=== PATIENT | female | born 1970 | race Hispanic/Latino ===

== ENCOUNTER 2017-06-20 09:20 | Outpatient (CLI) | payer BC ==
--- NOTE | 2017-06-20 11:07 | Mammography Report ---
BILATERAL MAMMOGRAM: FINDINGS: The breast tissue is heterogeneously dense, which could obscure detection of small masses (approximately 50%-75% glandular). No mass, distortion, suspicious calcification, or skin change is seen. CAD was utilized. IMPRESSION: Negative mammogram. There is no mammographic evidence of malignancy. RECOMMENDATION: Follow-up per ACS guidelines. BI-RADS CATEGORY: 1 = Negative ACR BI-RADS MAMMOGRAPHIC CODES: 0 = Needs additional imaging evaluation; 1 = Negative; 2 = Benign; 3 = Probably benign; 4 = Suspicious; 5 = Malignant; 6 = Known biopsy-proven malignancy COMMENT: 1. Dense breast tissue, i.e., adenosis, fibrocystic changes, etc., may obscure an underlying neoplasm. 2. Approximately 10% of cancers are not detected with mammography. 3. A negative mammography report should not delay biopsy if a clinically suspicious mass is present. COMMENT: Patient follow-up letters are generated in [employer].
== END 2017-06-20 09:21 | disposition home or self-care (01) ==
LOC: MAMMO 09:20
PROVIDERS: ATTEND Obstetrics & Gynecology Gynecology
DX: Z12.31 Encounter for screening mammogram for malignant neoplasm of breast (principal)
CPT/HCPCS: 77067; G0202

== ENCOUNTER 2019-11-01 10:49 | Outpatient (CLI) | payer BC ==
--- NOTE | 2019-11-01 15:21 | Mammography Report ---
DIGITAL SCREENING MAMMOGRAM WITH CAD, 11/01/2019 INDICATION: Routine screening mammography. TECHNIQUE: Digital bilateral 2D mammography was obtained in the craniocaudal and mediolateral obliq ue projections. This examination was interpreted with the benefit of Computer-Aided Detection analysi s. COMPARISON: 06/20/2017 FINDINGS: Breast Density: The breasts are heterogeneously dense, which may obscure small masses. Bilateral asymmetries require additional imaging. No architectural distortion or suspicious calcifica tions of either breast. IMPRESSION: Bilateral asymmetries requiring additional imaging. Recommend recall for left rolled CC a nd bilateral spot compression views and bilateral breast ultrasound if needed. Follow up recommendation: Routine yearly Category 0: Incomplete. Needs additional imaging evaluation and/or prior mammograms for comparison. A "normal" or negative report should not discourage follow up or biopsy of a clinically significant f inding. A written summary of these findings will be mailed to the patient. The patient will be entered into a mammography reporting system which will generate a reminder letter for the patient's next appointmen t at the appropriate interval. The [employer] recommends yearly mammograms starting at age 40 and continuing as l pepe as a woman is in good health. Breast MRI is recommended for women with an approximate 20-25% or greater lifetime risk of breast cancer, including women with a strong family history of breast or ova eleni cancer or who have been treated for Hodgkin's disease. Signer Name: Abel Adame MD Signed: 11/01/2019 3:16 PM Workstation Name: [id number]
== END 2019-11-01 10:50 | disposition home or self-care (01) ==
LOC: MAMMO 10:49
PROVIDERS: ATTEND Nurse Practitioner Women's Health
DX: Z12.31 Encounter for screening mammogram for malignant neoplasm of breast (principal)
CPT/HCPCS: 77067

== ENCOUNTER 2019-11-12 09:33 | Outpatient (CLI) | payer BC ==
--- NOTE | 2019-11-12 11:16 | Ultrasound Report ---
BILATERAL DIGITAL DIAGNOSTIC MAMMOGRAM WITH CAD -- 11/12/2019 BILATERAL LIMITED BREAST ULTRASOUND INDICATION: Patient presents as a callback from screening mammogram for further evaluation of asymmet cirilo densities in both breasts. TECHNIQUE: Digital bilateral mammographic imaging was performed. Spot compression views were obtaine d. Limited ultrasound was performed. This examination was interpreted with the benefit of Computer- ded Detection (CAD) analysis. COMPARISON: Prior mammograms dated 11/01/2019 and 06/20/2017 FINDINGS: Breast Density: The breasts are heterogeneously dense, which may obscure small masses. MAMMOGRAPHIC FINDINGS: Additional views reveal a 2.8 cm oval mass with partially circumscribed and pa rtially obscured margins in the 12:00 position of the left breast, middle depth, and a persistent 10 mm oval mass with partially circumscribed and partially obscured margins in the inferior right breast . An additional oval mass with circumscribed margins is seen in the 9:00 position of the right breast , anterior depth. Targeted ultrasound performed for further evaluation. ULTRASOUND FINDINGS: Targeted ultrasound evaluation was performed of the area of interest. Left breast: Corresponding with the oval circumscribed mass seen mammographically, there is a benign simple cyst in the left breast 12:00 position located 6 cm from the nipple measuring up to 2.4 x 3.1 x 1.6 cm. No suspicious solid lesion identified in the left breast. Right breast: Corresponding with the oval masses seen mammographically, there is an oval circumscribe d hypoechoic mass in the right breast 9:00 subareolar position measuring up to 10 x 9 x 6 mm. The mas s is parallel. Internal vascularity is noted. An adjacent tiny cyst is present. Additionally, there i s an oval circumscribed complicated cyst versus cystic and solid lesion in the right breast 11:00 pos ition located 7 cm from the nipple measuring up to 11 x 6 x 8 mm. No internal vascularity is noted. IMPRESSION: 1. Two oval masses in the right breast as described above. While these are low suspicion for malignan cy, ultrasound-guided biopsy is recommended since they are new compared with prior mammogram. 2. A benign simple cyst is seen in the left breast. Follow up recommendation: Biopsy BI-RADS Category 4: Suspicious for Malignancy. A "normal" or negative report should not discourage follow up or biopsy of a clinically significant f inding. A written summary of these findings will be mailed to the patient. The patient will be entered into a mammography reporting system which will generate a reminder letter for the patient's next appointmen t at the appropriate interval. According to the [employer], yearly mammograms are recommended starting at age 40 and continuing as long as a woman is in good health. Breast MRI is recommended for women with an duncan roximately 20-25% or greater lifetime risk of breast cancer, including women with a strong family his tory of breast or ovarian cancer and women who have been treated for Hodgkin's disease. Signer Name: Bri Morrison MD Signed: 11/12/2019 11:11 AM Workstation Name: [email or web address]
== END 2019-11-12 09:34 | disposition home or self-care (01) ==
LOC: MAMMO 09:33
PROVIDERS: ATTEND Nurse Practitioner Women's Health
DX: N60.02 Solitary cyst of left breast (principal); N63.42 Unspecified lump in left breast, subareolar; N63.41 Unspecified lump in right breast, subareolar; N64.89 Other specified disorders of breast
CPT/HCPCS: 77066

== ENCOUNTER 2019-12-06 12:29 | Outpatient (CLI) | payer BC ==
--- NOTE | 2019-12-06 14:41 | Ultrasound Report ---
ULTRASOUND-GUIDED NEEDLE CORE BIOPSY RIGHT BREAST WITH CLIP PLACEMENT AT 2 SITES CLINICAL: Right breast masses described to be at 9:00 and 7:00. FINDINGS: The procedure was explained to the patient and informed consent was obtained. Ultrasound demonstrated the previously identified mass at 9:00 3 cm from the nipple and a complex mul ticystic mass at 8:30 o'clock 7 cm from the nipple. This was previously described to be at 7:00 7 cm from the nipple.. I marked the breast with a felt tip marker and a timeout was called. The skin was prepped with Chloro -Prep and anesthetized with 1% lidocaine. Needle core biopsy was performed at 9:00 through small dermatotomy using ultrasound guidance, 2% lido angel with epinephrine for deep anesthesia and a 14-gauge Achieve biopsy device. 5 cores were obtaine d and placed in formalin. A clip was deployed within the mass. Needle core biopsy was performed at 8:30 o'clock 7 cm from the nipple through small dermatotomy using ultrasound guidance, 2% lidocaine with epinephrine for deep anesthesia and a 14-gauge Achieve biopsy device. The lesion showed near complete collapse with the first pass and 2 cores were obtained and p laced in formalin. A clip was deployed within the lesion. The patient tolerated the procedure well and there were no apparent complications. Hemostasis was ach ieved with minimal effort and a sterile dressings were applied. A post procedure mammogram demonstrated concordant clip deployment at both sites. She left the [facility] in good condition and was given instructions for wound care and follow-up. IMPRESSION: Uncomplicated ultrasound guided needle core biopsy with clip placement at 2 sites right b reast. Signer Name: Abel Adame MD Signed: 12/06/2019 2:37 PM Workstation Name: [id number]
--- NOTE | 2019-12-06 15:34 | Mammography Report ---
DIGITAL DIAGNOSTIC MAMMOGRAM WITH CAD, 12/06/2019 INDICATION: Immediately increased status post ultrasound-guided needle biopsy at 2 sites TECHNIQUE: Digital right mammographic imaging was performed. This examination was interpreted with the benefit of Computer-aided Detection analysis. COMPARISON: 11/12/2019 FINDINGS: Breast Density: The breast is heterogeneously dense, which may obscure small masses. Biopsy clips are identified at 9:00 and at 8:00 and correlates with lesions identified by ultrasound. IMPRESSION: Concordant clip position at 2 sites. Follow up recommendation: No recall. Post biopsy imaging. A "normal" or negative report should not discourage follow up or biopsy of a clinically significant f inding. A written summary of these findings will be mailed to the patient. The patient will be entered into a mammography reporting system which will generate a reminder letter for the patient's next appointmen t at the appropriate interval. According to the [employer], yearly mammograms are recommended starting at age 40 and continuing as long as a woman is in good health. Breast MRI is recommended for women with an duncan roximately 20-25% or greater lifetime risk of breast cancer, including women with a strong family his tory of breast or ovarian cancer and women who have been treated for Hodgkin's disease. Signer Name: Abel Aadme MD Signed: 12/06/2019 3:30 PM Workstation Name: [id number]
== END 2019-12-06 12:30 | disposition home or self-care (01) ==
LOC: SPVWC 12:29
PROVIDERS: ATTEND Nurse Practitioner Women's Health
DX: N63.13 Unspecified lump in the right breast, lower outer quadrant (principal); D24.1 Benign neoplasm of right breast; N64.59 Other signs and symptoms in breast; R92.8 Other abnormal and inconclusive findings on diagnostic imaging of breast
CPT/HCPCS: 88305

== ENCOUNTER 2020-05-16 10:07 | Outpatient (CLI) | payer BC ==
--- NOTE | 2020-05-16 11:59 | Ultrasound Report ---
EXAMINATION: Right Complete Breast Ultrasound, 05/16/2020 INDICATION: Abnormal mammogram. Short-term low up post biopsy for papilloma. COMPARISON: Bilateral limited breast ultrasound 11/12/19. FINDINGS: Complete sonographic evaluation of all 4 quadrants and retroareolar region was performed. There is a 1 cm hypoechoic solid nodule at the 9:00 position 3 cm from the nipple which is unchanged in size. There is a new biopsy clip. There is a 6.6 mm complex nodule at the 8:00 position 7 cm from the nipple which measured 10.5 mm previously. There is a new biopsy clip. There are multiple additional similar appearing complex cystic and solid nodules scattered throughout the right breast which were not evaluated previously. There is a 3.2 mm solid nodule at the 12:30 po sition 2 cm from the nipple, a 5.3 mm solid nodule at the 2:00 position 2 cm from the nipple, a 3.4 m m solid nodule at the 3:00 position 3 cm from the nipple, a 7 mm solid nodule at the 5:00 position 3 cm from the nipple, a 5.8 mm solid nodule at the 8:00 position 5 cm from the nipple, a 7.8 mm complex cystic lesion at the 9:30 position 7 cm from the nipple, and a 5.5 mm solid nodule at the 10:00 posi tion 3 cm from the nipple. There is a 1.4 cm poorly defined solid nodule at the 11:00 position 2 cm from the nipple. Mild sagger soak ior shadowing is present. No internal vascularity is seen on Doppler exam. No axillary adenopathy or other abnormality is seen. IMPRESSION: 1. The previously described solid nodules at the 8:00 and 9:00 positions are unchanged to slightly sm aller postbiopsy. 2. 1.4 cm suspicious solid nodule at the 11:00 position was not imaged previously. Biopsy is recommen ded. 3. Multiple additional similar appearing solid and complex cystic nodules scattered throughout the ri ght breast are probably benign. Follow up recommendation: Surgical consult BI-RADS Category 4: Suspicious for Malignancy. Biopsy of a 1.4 cm solid nodule at the 11:00 position in the right breast is recommended. Signer Name: Wilbert Newman MD Signed: 05/16/2020 11:54 AM Workstation Name: [email or web address]
== END 2020-05-16 10:08 | disposition home or self-care (01) ==
LOC: SPVWC 10:07
PROVIDERS: ATTEND Surgery
DX: N63.41 Unspecified lump in right breast, subareolar (principal); N63.13 Unspecified lump in the right breast, lower outer quadrant; N63.11 Unspecified lump in the right breast, upper outer quadrant